=== PATIENT | male | born 1955 | race Caucasian/White ===

== ENCOUNTER 2018-11-17 07:54 | Day surgery (SDC) | payer OTHER ==
[~2018-11-17 07:54] MED LIST: Midazolam 1 MG/ML 2 ML SDV ONE; fentaNYL 100 MCG/2 ML SDV ONE
[2018-11-17] MEDS ORDERED: Midazolam 1 MG/ML 2 ML SDV IV ONE ×6 (07:55→09:26)
[2018-11-17] MEDS ORDERED: Dextrose 5%-0.45% NaCl 1,000 ML IV SCH (08:30)
[2018-11-17] MEDS ORDERED: Benzocaine 20% Topical Spray UD MUCMEM ONE (09:19)
[2018-11-17] MEDS ORDERED: Benzocaine 20% Oral Spray 59.2 ML Canister MUCMEM ONE (09:23)
--- NOTE | 2018-11-17 13:22 | OR ---
DATE: 11/17/2018 PREOPERATIVE DIAGNOSIS: Dysphagia. POSTOPERATIVE DIAGNOSIS: Dysphagia. PROCEDURES: EGD with photograph and biopsy of gastric antrum. ANESTHESIA: Conscious sedation with IV Versed. SPECIMENS: Gastric antral biopsy and biopsy for H. pylori. OPERATIVE FINDINGS: A small, 1 to 2 cm hiatal hernia with a minimal distal esophageal stricture. This is too big to undergo dilation. He has some evidence of distal esophagitis and has pre-pyloric antral gastritis. RECOMMENDATIONS: This patient should be on a regimen of strict proton pump inhibitor acid suppression. This stricture will probably soften up and improve if he controls his reflux. If he has continued symptoms, he may need to consider a Yoel fundoplication secondary to the hiatal hernia that may prevent him from getting rid of the reflux awaiting pathology for H. pylori for the gastric abnormalities. PROCEDURE IN DETAIL: After adequate preparation, a gastroscope was inserted into the esophagus, this was passed down to the distal esophagus. He does show some distal esophagitis, 2 cm hiatal hernia, and a fairly rigid but minimal esophageal ring or stricture. This was already too large and did not need dilation. However, with large boluses of food, it will get caught in this until it softens up. The scope was advanced into the stomach. Both forward and retroflexed views were done and are normal except for some pre-pyloric gastritis and small ulcers. Two biopsies of the antrum were taken, 1 for H. pylori and 1 for permanent path. The scope was advanced through the pylorus into the duodenum. The first and second part are normal. On withdrawal of the scope, photographs of the EG junction were taken. Air was suctioned from the stomach and the scope removed. He is a CT patient. [facility] /[id number] Copy sent to [facility], [place], [place]
== END 2018-11-17 11:29 | disposition home or self-care (01) ==
LOC: DL.ENDO 07:54
PROVIDERS: ATTEND Surgery
DX: K22.2 Esophageal obstruction (principal); K20.9 Esophagitis, unspecified; K25.9 Gastric ulcer, unspecified as acute or chronic, without hemorrhage or perforation; K44.9 Diaphragmatic hernia without obstruction or gangrene; K31.9 Disease of stomach and duodenum, unspecified
CPT/HCPCS: 43239; 87077; J2250; J7042